=== PATIENT | female | born 1945 | race Caucasian/White ===

== ENCOUNTER 2018-03-29 16:20 | Emergency (ER) | payer OTHER, BC ==
[~2018-03-29] VITALS: Ht 165.1 cm; Wt 120.7 kg
[2018-03-29 18:40] VITALS: BP 159/86
== END 2018-03-29 18:41 | disposition home or self-care (01) ==
LOC: EME 16:20
DX: S06.0X0A Concussion without loss of consciousness, initial encounter (principal); W07.XXXA Fall from chair, initial encounter; Y92.512 Supermarket, store or market as the place of occurrence of the external cause; I10 Essential (primary) hypertension
CPT/HCPCS: 70450; 99281; 99284

== ENCOUNTER 2018-04-04 17:03 | Inpatient (IN) | payer OTHER, BC ==
[~2018-04-04] VITALS: Ht 165.1 cm; Wt 122.7 kg
[2018-04-04 18:51] LABS: HEMATOCRIT 49.3 % (36.0-46.0); HEMOGLOBIN 16.4 G/DL (11.9-15.5); MCH 29.6 PG (29.0-34.0); MCHC 33.3 G/DL (30.0-36.0); RBC DIS.WIDTH-CV 13.5 % (11.8-14.6); RBC DIS.WIDTH-SD 44.5 % (39-53); RED BLOOD COUNT 5.54 M/uL (3.80-5.20); WHITE BLOOD COUNT 13.2 K/uL (4.1-10.2)
[2018-04-04 19:02] LABS: CHLORIDE 102 mEq/L (99-109); POTASSIUM 4.5 mEq/L (3.7-5.4); SODIUM 139 mEq/L (136-147)
[2018-04-04 19:04] LABS: GLUCOSE 157 mg/dL (70-99); TOTAL PROTEIN 6.9 g/dL (6.4-8.3)
[2018-04-04 19:06] LABS: TOTAL BILIRUBIN 0.7 mg/dL (0.0-1.0)
[2018-04-04 19:08] LABS: ALKALINE PHOSPHATASE 111 IU/L (3-129); CREATININE 1.6 mg/dL (0.6-1.3); GFR ESTIMATE (CALCULATED) 33 mL/min/
[2018-04-04 19:09] LABS: AST (GOT) 29 IU/L (2-34); UREA NITROGEN (BUN) 47 mg/dL (9-23)
[2018-04-04 19:11] LABS: ALT (GPT) 23 IU/L (3-49)
[2018-04-04 19:14] LABS: TROP-I INTERPRETATION POSITIVE
[2018-04-04 19:19] LABS: TROPONIN-I 0.76 ng/mL (0.0-0.30)
[2018-04-04 19:47] LABS: PLAT.SUFFICIENCY ADEQUATE; PLATELET COUNT 190 K/uL (156-360)
[2018-04-04] MEDS ORDERED: TOPROL XL50 MG PO (20:20)
[2018-04-04] MEDS ORDERED: CATAPRES0.3 MG PO (20:20)
[2018-04-04] MEDS ORDERED: ZETIA10 MG PO (20:20)
[2018-04-04] MEDS ORDERED: HYDROCHLOROTHIA50 MG PO (20:20)
[2018-04-04] MEDS ORDERED: ADVIL200 MG PO (20:21)
[2018-04-04] MEDS ORDERED: FISH OIL 500 M1 EAC2 PO (20:21)
[2018-04-04] MEDS ORDERED: AVAPRO300 MG PO (20:21)
[2018-04-04] MEDS ORDERED: VITAMIN D31000 UNIT PO (20:21)
[2018-04-04] MEDS ORDERED: ADULT ASPIRIN81 MG PO (20:21)
[2018-04-04 23:30] VITALS: BP 130/87
[2018-04-04 23:34] LABS: HDL CHOLESTEROL 55 MG/DL (Desirable>=50); LDL CHOLESTEROL 166 mg/dL (Desirable<100); NON-HDL CHOLESTEROL 207 mg/dL (Desirable<160); TOTAL CHOLESTEROL 262 mg/dL (Desirable<200); TRIGLYCERIDES 203 MG/DL (Normal: <150)
[2018-04-05] VITALS (7 sets, daily range): BP systolic 114–171; BP diastolic 69–98
[2018-04-05 01:30] LABS: TROP-I INTERPRETATION INDETERMINATE; TROPONIN-I 0.58 ng/mL (0.0-0.30)
[2018-04-05 06:40] LABS: HEMATOCRIT 45.1 % (36.0-46.0); HEMOGLOBIN 14.6 G/DL (11.9-15.5); MCH 29.1 PG (29.0-34.0); MCHC 32.4 G/DL (30.0-36.0); PLATELET COUNT 138 K/uL (156-360); RBC DIS.WIDTH-CV 13.7 % (11.8-14.6); RBC DIS.WIDTH-SD 45.3 % (39-53); RED BLOOD COUNT 5.01 M/uL (3.80-5.20); WHITE BLOOD COUNT 8.1 K/uL (4.1-10.2)
[2018-04-05 06:59] LABS: INTER. NORMALIZED RATIO 1.2
[2018-04-05 07:01] LABS: TROP-I INTERPRETATION INDETERMINATE; TROPONIN-I 0.43 ng/mL (0.0-0.30)
[2018-04-05 07:01] LABS: CHLORIDE 107 MEQ/L (99-109); CREATININE 1.4 MG/DL (0.6-1.3); GFR ESTIMATE (CALCULATED) 39 mL/min/; GLUCOSE 121 mg/dL (70-99); POTASSIUM 4.7 MEQ/L (3.7-5.4); SODIUM 140 MEQ/L (136-147); UREA NITROGEN (BUN) 47 mg/dL (9-23)
[2018-04-05 07:02] LABS: PTT 28.6 SEC (25-37)
[2018-04-05 14:57] LABS: INTER. NORMALIZED RATIO 1.2
[2018-04-05 15:00] LABS: PTT 32.8 SEC (25-37)
[2018-04-06] VITALS (8 sets, daily range): BP systolic 136–196; BP diastolic 80–100
[2018-04-06 05:34] LABS: CHLORIDE 105 MEQ/L (99-109); CREATININE 1.3 MG/DL (0.6-1.3); GFR ESTIMATE (CALCULATED) 43 mL/min/; GLUCOSE 133 mg/dL (70-99); POTASSIUM 4.4 MEQ/L (3.7-5.4); SODIUM 139 MEQ/L (136-147); UREA NITROGEN (BUN) 42 mg/dL (9-23)
[2018-04-06 14:44] LABS: THYROTROPIN (TSH) 1.6 MIU/L (0.4-5.5)
[2018-04-07 00:10] VITALS: BP 139/82
[2018-04-07 04:40] VITALS: BP 124/68
[2018-04-07 06:51] LABS: HEMATOCRIT 45.6 % (36.0-46.0); HEMOGLOBIN 15.1 G/DL (11.9-15.5); MCH 29.3 PG (29.0-34.0); MCHC 33.1 G/DL (30.0-36.0); MCV 88.5 FL (83-99); PLATELET COUNT 153 K/uL (156-360); RBC DIS.WIDTH-CV 13.5 % (11.8-14.6); RED BLOOD COUNT 5.15 M/uL (3.80-5.20)
[2018-04-07 09:00] VITALS: BP 138/92
[2018-04-07 12:00] VITALS: BP 118/69
[2018-04-07 19:26] VITALS: BP 14/71; BP 140/71
[2018-04-08] VITALS (7 sets, daily range): BP systolic 130–180; BP diastolic 67–91
[2018-04-08 06:35] LABS: INTER. NORMALIZED RATIO 1.1
[2018-04-08 06:38] LABS: PTT 70.9 SEC (25-37)
[2018-04-09 05:22] VITALS: BP 151/73
[2018-04-09 07:09] LABS: HEMATOCRIT 44.9 % (36.0-46.0); HEMOGLOBIN 14.6 G/DL (11.9-15.5); MCH 29.1 PG (29.0-34.0); MCHC 32.5 G/DL (30.0-36.0); MCV 89.6 FL (83-99); PLATELET COUNT 177 K/uL (156-360); RBC DIS.WIDTH-CV 13.8 % (11.8-14.6); RBC DIS.WIDTH-SD 44.4 % (39-53); RED BLOOD COUNT 5.01 M/uL (3.80-5.20)
[2018-04-09 07:29] LABS: INTER. NORMALIZED RATIO 1.9
[2018-04-09 07:33] LABS: PTT 32.7 SEC (25-37)
[2018-04-09 09:10] VITALS: BP 163/78
[2018-04-09 13:01] VITALS: BP 135/61
[2018-04-09 16:13] VITALS: BP 142/69
[2018-04-09 18:49] VITALS: BP 119/71
[2018-04-09 22:05] VITALS: BP 147/70
[2018-04-10 03:50] VITALS: BP 176/84
[2018-04-10 04:53] VITALS: BP 137/81
[2018-04-10 07:03] VITALS: BP 149/66
[2018-04-10] MEDS ORDERED: CARDIZEM CD,CA180 MG PO (12:02)
[2018-04-10] MEDS ORDERED: ELIQUIS5 MG PO ×2 (12:02→12:18)
[2018-04-10] MEDS ORDERED: METOPROLOL SUC100 MG PO (12:02)
[2018-04-10 12:10] VITALS: BP 104/58; BP 113/79
== END 2018-04-10 13:42 | disposition home or self-care (01) | DRG 280 ==
LOC: EME 17:03 → EDOF 21:12 → 4EAST 21:12 → ENRESERV 21:21 → 4EAST 23:11 → ENPENDDIS 04-10 → 4EAST 04-10 13:42
PROVIDERS: Emergency Medicine; Hospitalist; Physician Assistant Medical
DX: I21.4 Non-ST elevation (NSTEMI) myocardial infarction (principal); I48.92 Unspecified atrial flutter; I26.99 Other pulmonary embolism without acute cor pulmonale; I47.1 Supraventricular tachycardia; N17.9 Acute kidney failure, unspecified; I10 Essential (primary) hypertension; E66.01 Morbid (severe) obesity due to excess calories; E86.0 Dehydration; Z79.82 Long term (current) use of aspirin; Z79.899 Other long term (current) drug therapy; Z68.42 Body mass index [BMI] 45.0-49.9, adult; I87.8 Other specified disorders of veins; R73.03 Prediabetes; E78.2 Mixed hyperlipidemia; Z96.641 Presence of right artificial hip joint; Z79.01 Long term (current) use of anticoagulants; E11.9 Type 2 diabetes mellitus without complications; S00.83XD Contusion of other part of head, subsequent encounter; W19.XXXD Unspecified fall, subsequent encounter
CPT/HCPCS: 71045; 78582; 80048; 80053; 80061; 81003; 83880; 84443; 84484; 85027; 85379; 85610; 85730; 93005; 93306; 93970; 97530 GO; 99281; 99285; A9540; A9567; J1650; J7030; J7040; J7050